=== PATIENT | male | born 1955 | race Caucasian/White ===

== ENCOUNTER → 2017-02-11 | Outpatient (CLI) | payer BC | END | disposition home or self-care (01) | LOC: LABWHC1 11:47 | PROVIDERS: ATTEND Urology | DX: C61 Malignant neoplasm of prostate (principal) | CPT/HCPCS: 36415; 84153 ==

== ENCOUNTER → 2017-05-24 | Outpatient (CLI) | payer BC | END | disposition home or self-care (01) | LOC: LABWHC1 08:06 | PROVIDERS: ATTEND Radiology Radiation Oncology | DX: C61 Malignant neoplasm of prostate (principal) | CPT/HCPCS: 36415; 84153 ==

== ENCOUNTER → 2017-09-26 | Outpatient (CLI) | payer BC | END | disposition home or self-care (01) | LOC: LABWHC1 09:24 | PROVIDERS: ATTEND Radiology Radiation Oncology | DX: C61 Malignant neoplasm of prostate (principal) | CPT/HCPCS: 36415; 84153 ==

== ENCOUNTER → 2018-01-23 | Outpatient (CLI) | payer BC | END | disposition home or self-care (01) | LOC: LABWHC1 09:18 | PROVIDERS: ATTEND Radiology Radiation Oncology | DX: C61 Malignant neoplasm of prostate (principal) | CPT/HCPCS: 36415; 84153 ==

== ENCOUNTER → 2018-03-15 | Outpatient (CLI) | payer BC ==
--- NOTE | 2018-03-15 15:17 | US ---
EXAMINATION TYPE: US kidneys/renal and bladder DATE OF EXAM: 03/15/2018 COMPARISON: NONE CLINICAL HISTORY: R31.9 Hematuria noted while on aspirin; once aspirin discontinued no visible hematu osbaldo; prostatectomy EXAM MEASUREMENTS: Right Kidney: 12.6 x 5.5 x 6.0 cm Left Kidney: 12.3 x 5.0 x 6.7 cm Post Void Residual Volume: 2.0 mL Right Kidney: No hydronephrosis or masses seen Left Kidney: No hydronephrosis or masses seen Bladder: wnl Bilateral Jets seen: yes Normal Post Void Residual: Yes There is no evidence for hydronephrosis at this point in time. No nephrolithiasis is seen. No patrick s are identified. The urinary bladder is anechoic. Bilateral ureteral jets are seen. IMPRESSION: No significant finding is seen to account for patient's symptoms.
== END | disposition home or self-care (01) ==
LOC: RADUSWWP 13:11
PROVIDERS: ATTEND Urology
DX: R31.9 Hematuria, unspecified (principal)
CPT/HCPCS: 76770

== ENCOUNTER → 2018-04-20 | Outpatient (CLI) | payer BC | END | disposition home or self-care (01) | LOC: LABWHC1 11:38 | PROVIDERS: ATTEND Radiology Radiation Oncology | DX: C61 Malignant neoplasm of prostate (principal) | CPT/HCPCS: 36415; 84153 ==

== ENCOUNTER → 2018-08-22 | Outpatient (CLI) | payer BC | LOC: LABWHC1 11:34 | PROVIDERS: ATTEND Radiology Radiation Oncology | DX: C61 Malignant neoplasm of prostate (principal); R97.21 Rising PSA following treatment for malignant neoplasm of prostate; Z90.79 Acquired absence of other genital organ(s) | CPT/HCPCS: 36415; 84153 ==

== ENCOUNTER → 2018-11-27 | Outpatient (CLI) | payer BC | LOC: LABWHC1 10:19 | PROVIDERS: ATTEND Radiology Radiation Oncology | DX: C61 Malignant neoplasm of prostate (principal); R97.21 Rising PSA following treatment for malignant neoplasm of prostate; Z90.79 Acquired absence of other genital organ(s) | CPT/HCPCS: 36415; 84153 ==

== ENCOUNTER → 2019-06-07 | Outpatient (CLI) | payer BC | END | disposition home or self-care (01) | LOC: LABWHC1 13:58 | PROVIDERS: ATTEND Radiology Radiation Oncology | DX: C61 Malignant neoplasm of prostate (principal); R97.21 Rising PSA following treatment for malignant neoplasm of prostate; Z90.79 Acquired absence of other genital organ(s) | CPT/HCPCS: 36415; 84153 ==

== ENCOUNTER → 2019-12-06 | Outpatient (CLI) | payer BC | END | disposition home or self-care (01) | LOC: LABWHC1 10:10 | PROVIDERS: ATTEND Radiology Radiation Oncology | DX: C61 Malignant neoplasm of prostate (principal); R97.21 Rising PSA following treatment for malignant neoplasm of prostate; Z90.79 Acquired absence of other genital organ(s) | CPT/HCPCS: 36415; 84153 ==

== ENCOUNTER 2020-04-17 09:44 | Day surgery (SDC) | payer BC ==
[2020-04-15 15:20] VITALS: BMI 34.5
[~2020-04-17 09:44] MED LIST: LACTATED RINGERS 1,000 ML IV SCH; LIDOCAINE 1% (10MG/ML) FOR IV START INTRADERMA PRN
[2020-04-17 09:59] VITALS: TEMP 96.9
[2020-04-17] MEDS ORDERED: PROPOFOL 10 MG/ML 20 ML VIAL IV ONE (11:39)
[2020-04-17] MEDS ORDERED: LIDOCAINE 1% INJ 10MG/ML (20 ML MDV) ONE (11:39)
--- NOTE | 2020-04-17 12:15 | P.PCN ---
Date of Procedure: 04/17/20 Description of Procedure: BRIEF HISTORY: Patient is a 64-year-old male presenting for outpatient colonoscopy for evaluation of family history of colon cancer. Last colonoscopy 5 years ago with no polyps removed. But he does report polypectomy on his initial colonoscopy. Father was diagnosed with colon cancer in his 60s. No change in bowel habits reported. PROCEDURE PERFORMED: Colonoscopy with polypectomy. PREOPERATIVE DIAGNOSIS: Family history of colon cancer, last colonoscopy 5 years ago. ESTIMATED BLOOD LOSS: Minimal. IV sedation per Anesthesia. PROCEDURE: After informed consent was obtained, the patient, was brought into the endoscopy unit. IV sedation was administered by Anesthesia under continuous monitoring. Digital rectal examination was normal. Initially the Olympus CF-190 flexible video colonoscope was then inserted in the rectum, gradually advanced into the cecum without any difficulty. Careful examination was performed as the scope was gradually being withdrawn. Ileocecal valve and the appendiceal orifice were visualized and appeared normal. Prep was excellent. Mucosa of the cecum, ascending colon, transverse colon, descending colon, sigmoid colon, and rectum appeared normal. A few scattered diverticula were noted in the sigmoid colon. 2 diminutive polyps were removed from the sigmoid colon and descending colon measuring 2-3 mm in size with cold forcep polypectomy. A large pedunculated 14 mm sigmoid colon polyp was removed with hot snare polypectomy. Retroflexion was performed in the rectum and no lesions were seen, low-grade internal hemorrhoids noted. The patient tolerated the procedure well. IMPRESSION: Large pedunculated sigmoid colon polyp removed with hot snare polypectomy. 2 diminutive polyps removed from the descending colon and sigmoid colon with cold forcep polypectomy. Mild sigmoid diverticulosis. Low-grade internal hemorrhoids. RECOMMENDATIONS: Findings of this examination were discussed with the patient. Okay to resume diet. Okay to resume medications. Await pathology from polypectomies. Would r ecommend repeat colonoscopy in 3 years for high risk colon polyps.
[2020-04-17 12:17] VITALS: RESP 16
[2020-04-17 13:14] VITALS: BP 105/67; PULSE 55
== END 2020-04-17 13:10 | disposition home or self-care (01) ==
LOC: ORWHC2ENDO 09:44
PROVIDERS: ATTEND Internal Medicine
DX: Z12.11 Encounter for screening for malignant neoplasm of colon (principal); D12.4 Benign neoplasm of descending colon; D12.5 Benign neoplasm of sigmoid colon; K63.5 Polyp of colon; K57.30 Diverticulosis of large intestine without perforation or abscess without bleeding; K64.8 Other hemorrhoids; K21.9 Gastro-esophageal reflux disease without esophagitis; G47.33 Obstructive sleep apnea (adult) (pediatric); Z85.46 Personal history of malignant neoplasm of prostate; Z80.0 Family history of malignant neoplasm of digestive organs; Z90.79 Acquired absence of other genital organ(s); Z90.49 Acquired absence of other specified parts of digestive tract; Z98.890 Other specified postprocedural states; Z79.899 Other long term (current) drug therapy
CPT/HCPCS: 45385; 45380; 88305; J2001; J2704

== ENCOUNTER → 2020-05-08 | Outpatient (CLI) | payer BC | END | disposition home or self-care (01) | LOC: LABWHC1 09:28 | PROVIDERS: ATTEND Radiology Radiation Oncology | DX: C61 Malignant neoplasm of prostate (principal); R97.21 Rising PSA following treatment for malignant neoplasm of prostate; Z90.79 Acquired absence of other genital organ(s) | CPT/HCPCS: 36415; 84153 ==

== ENCOUNTER → 2021-02-11 | Outpatient (CLI) | payer MEDICARE ==
--- NOTE | 2021-02-11 18:40 | CONS ---
CONSULTATION DATE OF CONSULTATION: 02/11/2021. 65-year-old gentleman has been evaluated in [facility] for obstructive sleep apnea- hypopnea syndrome. HISTORY OF PRESENT ILLNESS/SLEEP WAKE EVALUATION: According to patient, he was diagnosed with obstructive sleep apnea in the [facility] about 25 years ago. Since that time, patient is on treatment with CPAP every night for the whole night. SLEEP SCHEDULE: His sleep schedule from 11 or 12 midnight until 9 in the morning. FALLING ASLEEP: No problems with falling asleep. No TV in bedroom. DURING SLEEP: He sleeps in different positions. He wakes up from sleep once with nocturia. DURING THE DAY/SLEEP WAKE EVALUATION: No history of hypnagogic hallucinations, sleep paralysis or cataplexy. [place] Sleepiness Scale today is 6. He does not take any naps. For the last year, he increased his weight on about 10 pounds. I checked the CPAP unit. Usage is 30/30 nights with average usage 8 hours and 5 minutes. The machine does not have information about apnea-hypopnea index or leak. Machine is very old. I tried to get information about results of previous sleep studies, but the patient explained to me that it is not available. PAST MEDICAL HISTORY: Positive for hypertension, cardiac arrhythmia, hyperlipidemia. The patient has been told about congenital heart problems, prostate CA, acid reflux, restless leg symptoms. SOCIAL HISTORY: Positive for smoking for many years up to 2 packs a day. Quit about 20 years ago. MEDICATIONS: Catapres 0.1 mg 2 times a day. Lopressor 50 mg twice a day. Lipitor 20 mg once a day, Microzide 12.5 mg once a day, Norvasc 5 mg once a day, trazodone 50 mg once a day, Famotidine 20 mg twice a day, Zyrtec 10 mg once a day. Multivitamins, vitamin D, zinc supplements. REVIEW OF SYSTEMS: Sometimes awakenings from sleep while using CPAP equipment. FAMILY HISTORY: Heart problems. PAST SURGICAL HISTORY: Cholecystectomy, prostatectomy 2004, radiation therapy for prostate in 2016. PHYSICAL EXAMINATION: GENERAL: gentleman without distress. BP 150/63, HR 77, RR 15, height 6 feet 0 inches, weight 247.2, temperature 97.4, oxygen saturation at room air 95%. Oropharynx: Low position of soft palate. NECK: Wide 18 1/2 inches in circumference. Supple, no JVD. Thyroid is not palpable. LUNGS: Clear to percussion and to auscultation. Good air exchange. No wheezing or rhonchi. HEART: S1, S2 regular. No murmurs, gallops, or rubs. ABDOMEN: Slightly obese. Soft and nontender. Bowel sounds are present. No organomegaly appreciated. EXTREMITIES: No clubbing or cyanosis. COMPUTER PROGRAMMING SUPERVISOR: Awake, alert, and oriented X3. Cranial nerves 2 to 7 intact. There is no fasciculation or atrophy. noted. No focal deficits observed. Neck is white 18-1/2 inches in circumference. IMPRESSION: 1. Obstructive sleep apnea-hypopnea syndrome for about 25 years. The patient continues to use CPAP equipment every night. Occasional awakenings from CPAP. CPAP unit is very old. Information from previous sleep study is not available. 2. Obesity, body mass index 33.4. 3. Hypertension. 4. History of cardiac arrhythmia with high cardiac rate according to patient. 5. History of congenital heart disease according to the patient. 6. History of prostate carcinoma, status post a prostatectomy in 2004 and radiation therapy in 2016. 7. Status post cholecystectomy. 8. Acid reflux. 9. History of restless legs syndrome symptoms. Results of previous sleep studies are not available. PLAN: 1. Polysomnography for evaluation of patient's breathing during sleep. 2. CPAP/BiPAP titration if sleep study confirms obstructive sleep apnea-hypopnea syndrome. 3. Preferable position during sleep on the side. 4. No driving if patient feels any sleepiness. 5. I will see patient for follow up visit to explain results of testing and following plan. 6. The patient's CPAP unit should be replaced. Thank you very much for referring this patient for consultation. Sincerely, Demar Means MD, PhD, FAASM Diplomat of [place] [employer] [place] [employer] [facility] [place] MMODL / IJN: [id number] /
== END ==
LOC: SLEEP 13:34
PROVIDERS: ATTEND Internal Medicine
DX: G47.33 Obstructive sleep apnea (adult) (pediatric) (principal); E66.9 Obesity, unspecified; E78.5 Hyperlipidemia, unspecified; I10 Essential (primary) hypertension; K21.9 Gastro-esophageal reflux disease without esophagitis; Z86.79 Personal history of other diseases of the circulatory system; Z85.46 Personal history of malignant neoplasm of prostate; Z90.79 Acquired absence of other genital organ(s); Z90.49 Acquired absence of other specified parts of digestive tract; Z68.33 Body mass index [BMI] 33.0-33.9, adult; Z92.3 Personal history of irradiation; Z99.89 Dependence on other enabling machines and devices; Z79.899 Other long term (current) drug therapy
CPT/HCPCS: 99202

== ENCOUNTER 2021-03-14 19:04 | Emergency (ER) | payer MEDICARE ==
[2021-03-14] MEDS ORDERED: SODIUM CHLORIDE 0.9% 1,000 ML IV STA (19:22)
[2021-03-14 20:11] LABS: Basophils % (A) 0 %; Eosinophils # (A) 0.1 k/uL (0-0.7); Eosinophils % (A) 2 %; HCT 43.1 % (39.0-53.0); HGB 15.5 gm/dL (13.0-17.5); Lymphocytes # (A) 1.4 k/uL (1.0-4.8); Lymphocytes % (A) 17 %; MCH 31.7 pg (25.0-35.0); MCHC 35.9 g/dL (31.0-37.0); MCV 88.5 fL (80.0-100.0); Mean Platelet Volume 6.9; Monocytes # (A) 0.6 k/uL (0-1.0); Monocytes % (A) 8 %; Neutrophils # (A) 5.5 k/uL (1.3-7.7); Neutrophils % (A) 69 %; Platelet Count 216 k/uL (150-450); RBC 4.87 m/uL (4.30-5.90); RDW 13.1 % (11.5-15.5); WBC 7.9 k/uL (3.8-10.6)
[2021-03-14] MEDS ORDERED: LIDOCAINE URO-JET JELLY 2% 5 ML KIT URETHRAL ONE (20:14)
[2021-03-14] MEDS ORDERED: KETOROLAC 15 MG/ML 1 ML VIAL IVP STA (20:14)
--- NOTE | 2021-03-14 20:14 | ED ---
Male Urogenital HPI - General Chief complaint: Urogenital Stated complaint: blood in urine Source: patient, family Mode of arrival: wheelchair Limitations: no limitations - History of Present Illness Initial comments: 65-year-old male with history of prostate cancer presents to emergency Department with a chief complaint of hematuria. States it is common for him to have gross hematuria that is usually exacerbated whenever he is lifting heavy. States he was lifting a heavy object earlier today which she believes might have exacerbated his symptoms. Patient states he developed gross hematuria earlier today and has since only been passing blood clots. States she has not had a clear urine in the past several hours. He reports there is a blockage. This is occurred previously. He reports pressure over the bladder. He denies any nausea or vomiting or diarrhea. - Related Data Home Medications Medication Instructions Recorded Confirmed Atorvastatin [Lipitor] 20 mg PO HS 04/15/20 04/15/20 Cetirizine HCl [Zyrtec] 10 mg PO DAILY 04/15/20 04/15/20 Famotidine [Pepcid] 20 mg PO BID 04/15/20 04/15/20 Hydrochlorothiazide 12.5 mg PO DAILY 04/15/20 04/15/20 [hydroCHLOROthiazide] Metoprolol Tartrate [Lopressor] 50 mg PO BID 04/15/20 04/15/20 Multivitamins, Thera [Multivitamin 1 tab PO DAILY 04/15/20 04/15/20 (formulary)] amLODIPine [Norvasc] 5 mg PO DAILY 04/15/20 04/15/20 cloNIDine HCL [Catapres] 0.1 mg PO BID 04/15/20 04/15/20 traZODone HCL 50 mg PO HS 04/15/20 04/15/20 Previous Rx's Medication Instructions Recorded Ciprofloxacin HCl [Cipro] 500 mg PO Q12HR #20 tablet 03/14/21 Allergies Allergy/AdvReac Type Severity Reaction Status Date / Time No Known Allergies Allergy Verified 03/14/21 19:15 Review of Systems ROS Statement: Those systems with pertinent positive or pertinent negative responses have been documented in the HPI. ROS Other: All systems not noted in ROS Statement are negative. Past Medical History Past Medical History: Cancer, GERD/Reflux, Hyperlipidemia, Hypertension Additional Past Medical History / Comment(s): NEUROPATHY BLE. TINNITIS. HX PROSTATE CANCER-SX AND CHEMO History of Any Multi-Drug Resistant Organisms: None Reported Past Surgical History: Cholecystectomy, Prostate Surgery Additional Past Surgical History / Comment(s): PROSTATECTOMY. COLONOSCOPY/EGD Past Anesthesia/Blood Transfusion Reactions: Motion Sickness Past Psychological History: No Psychological Hx Reported Smoking Status: Former smoker Past Alcohol Use History: Occasional Past Drug Use History: None Reported - Past Family History Father Family Medical History: Cancer General Exam Limitations: no limitations General appearance: alert, in no apparent distress Head exam: Present: atraumatic, normocephalic, normal inspection Eye exam: Present: normal appearance, PERRL, EOMI Pupils: Present: normal accommodation ENT exam: Present: normal exam, normal oropharynx, mucous membranes moist. Absent: TM's normal bilaterally, normal external ear exam Neck exam: Present: normal inspection, full ROM. Absent: tenderness, lymphadenopathy Respiratory exam: Present: normal lung sounds bilaterally. Absent: respiratory distress, wheezes, rales, rhonchi, stridor, chest wall tenderness, accessory muscle use Cardiovascular Exam: Present: regular rate, normal rhythm, normal heart sounds. Absent: systolic murmur GI/Abdominal exam: Present: soft, tenderness (Tenderness over the bladder). Absent: distended, guarding, rebound, rigid Extremities exam: Present: normal inspection, full ROM, normal capillary refill. Absent: tenderness, pedal edema, joint swelling Back exam: Present: normal inspection, full ROM. Absent: tenderness, CVA tenderness (R), CVA tenderness (L), muscle spasm, paraspinal tenderness, vertebral tenderness Course Vital Signs 03/14/21 19:15 Temperature 97.8 F Pulse Rate 78 Respiratory 16 Rate Blood Pressure 134/74 O2 Sat by Pulse 97 Oximetry Medical Decision Making - Medical Decision Making 65-year-old male with history of prostate cancer presents to emergency Department with a chief complaint of hematuria. On physical examination, tenderness over the bladder. Floyd catheter was inserted and he drained about 6 700 mL of mostly gross hematuria. He was able to have some clear urine as well. UA showed excessive amounts of red blood cells along with white blood cells. Urine culture pending. He will be started on ciprofloxacin. CBC and BMP unremarkable. Patient will follow up with his urologist. Return parameters were thoroughly discussed with patient was mihaela escobar. Case discussed with dr. ROSE - Lab Data Result diagrams: 03/14/21 19:50 03/14/21 19:50 Lab Results 03/14/21 03/14/21 03/14/21 Range/Units 19:50 19:50 19:50 WBC 7.9 (3.8-10.6) k/uL RBC 4.87 (4.30-5.90) m/uL Hgb 15.5 (13.0-17.5) gm/dL Hct 43.1 (39.0-53.0) % MCV 88.5 (80.0-100.0) fL MCH 31.7 (25.0-35.0) pg MCHC 35.9 (31.0-37.0) g/dL RDW 13.1 (11.5-15.5) % Plt Count 216 (150-450) k/uL MPV 6.9 Neutrophils % 69 % Lymphocytes % 17 % Monocytes % 8 % Eosinophils % 2 % Basophils % 0 % Neutrophils # 5.5 (1.3-7.7) k/uL Lymphocytes # 1.4 (1.0-4.8) k/uL Monocytes # 0.6 (0-1.0) k/uL Eosinophils # 0.1 (0-0.7) k/uL Basophils # 0.0 (0-0.2) k/uL Sodium 139 (137-145) mmol/L Potassium 3.7 (3.5-5.1) mmol/L Chloride 103 (98-107) mmol/L Carbon Dioxide 22 (22-30) mmol/L Anion Gap 14 mmol/L BUN 13 (9-20) mg/dL Creatinine 0.68 (0.66-1.25) mg/dL Est GFR (CKD-EPI)AfAm >90 (>60 ml/min/1.73 sqM) Est GFR (CKD-EPI)NonAf >90 (>60 ml/min/1.73 sqM) Glucose 115 H (74-99) mg/dL Calcium 9.6 (8.4-10.2) mg/dL Urine Color Red Urine Appearance Bloody (Clear) Urine pH Not Reportable Ur Specific [place] Not Reportable Urine Protein Not Reportable Ur Protein Confirm Not Reportable Urine Glucose (UA) Not Reportable Urine Ketones Not Reportable Urine Blood Not Reportable Urine Nitrite Not Reportable Urine Bilirubin Not Reportable Ur Bilirubin Confirm Not Reportable Urine Urobilinogen Not Reportable Ur Leukocyte Esterase Not Reportable Urine RBC >182 H (0-5) /hpf Urine WBC >182 H (0-5) /hpf Disposition Clinical Impression: Hematuria, UTI (urinary tract infection) Disposition: HOME SELF-CARE Condition: Stable Instructions (If sedation given, give patient instructions): Urinary Tract Infection in Men (ED) Additional Instructions: follow-up with urology. Take prescribed medication as directed. Return to emergency department if symptoms worsen. Prescriptions: Ciprofloxacin HCl [Cipro] 500 mg PO Q12HR #20 tablet Is patient prescribed a controlled substance at d/c from ED?: No Referrals: Amita Calero MD [Primary Care Provider] - 1-2 days Rohit Beckwith MD [STAFF PHYSICIAN] - 1-2 days Time of Disposition: 21:29
[2021-03-14 20:41] LABS: African American GFR (CKD) >90 (>60 ml/min/1.73 sqM); Anion Gap 14 mmol/L; Blood Urea Nitrogen 13 mg/dL (9-20); Calcium 9.6 mg/dL (8.4-10.2); Carbon Dioxide 22 mmol/L (22-30); Chloride 103 mmol/L (98-107); Glucose 115 mg/dL (74-99); Non-African American GFR(CKD) >90 (>60 ml/min/1.73 sqM); Potassium 3.7 mmol/L (3.5-5.1); RBC,Urine >182 /hpf (0-5); Sodium 139 mmol/L (137-145)
[2021-03-14 20:45] LABS: WBC,Urine >182 /hpf (0-5)
[2021-03-14 20:56] LABS: Appearance,Urine Bloody (Clear); Color,Urine Red
[2021-03-14 22:47] VITALS: BP 146/73; PULSE 90; RESP 18; TEMP 98.1
== END 2021-03-14 22:47 | disposition home or self-care (01) ==
LOC: EC 19:04
DX: R31.9 Hematuria, unspecified (principal); N39.0 Urinary tract infection, site not specified; E78.5 Hyperlipidemia, unspecified; I10 Essential (primary) hypertension; K21.9 Gastro-esophageal reflux disease without esophagitis; Z85.46 Personal history of malignant neoplasm of prostate; Z87.891 Personal history of nicotine dependence; Z90.79 Acquired absence of other genital organ(s)
CPT/HCPCS: 36415; 80048; 85025; 81001; 87086; 99283; 96374; J1885

== ENCOUNTER 2021-03-15 10:06 | Emergency (ER) | payer MEDICARE ==
[2021-03-15 10:12] VITALS: RESP 18; TEMP 98.3
--- NOTE | 2021-03-15 10:32 | ED ---
General Adult HPI - General Chief complaint: Urogenital Stated complaint: Revisit/Floyd Cath Issues Time Seen by Provider: 03/15/21 10:14 Source: patient, family, RN notes reviewed Mode of arrival: ambulatory Limitations: no limitations - History of Present Illness Initial comments: Patient is a pleasant 65-year-old male returning to the emergency department with concern for Floyd catheter not draining. He should states he did have some bleeding and retention and had Floyd catheter placed yesterday. Patient states it did drain well at that time. Patient states he has had minimal output since he left last night. Patient states that has been some blood coming from the site of the catheter. Patient does not have suprapubic fullness as he did last night. No abdominal or back pain. No fevers. Patient did have similar symptoms years ago and did follow-up with urologist at that time. Patient is not currently on any blood thinners. - Related Data Home Medications Medication Instructions Recorded Confirmed Atorvastatin [Lipitor] 20 mg PO HS 04/15/20 04/15/20 Cetirizine HCl [Zyrtec] 10 mg PO DAILY 04/15/20 04/15/20 Famotidine [Pepcid] 20 mg PO BID 04/15/20 04/15/20 Hydrochlorothiazide 12.5 mg PO DAILY 04/15/20 04/15/20 [hydroCHLOROthiazide] Metoprolol Tartrate [Lopressor] 50 mg PO BID 04/15/20 04/15/20 Multivitamins, Thera [Multivitamin 1 tab PO DAILY 04/15/20 04/15/20 (formulary)] amLODIPine [Norvasc] 5 mg PO DAILY 04/15/20 04/15/20 cloNIDine HCL [Catapres] 0.1 mg PO BID 04/15/20 04/15/20 traZODone HCL 50 mg PO HS 04/15/20 04/15/20 Previous Rx's Medication Instructions Recorded Ciprofloxacin HCl [Cipro] 500 mg PO Q12HR #20 tablet 03/14/21 Allergies Allergy/AdvReac Type Severity Reaction Status Date / Time No Known Allergies Allergy Verified 03/15/21 10:11 Review of Systems ROS Statement: Those systems with pertinent positive or pertinent negative responses have been documented in the HPI. ROS Other: All systems not noted in ROS Statement are negative. Constitutional: Denies: fever Eyes: Denies: eye pain ENT: Denies: ear pain Respiratory: Denies: cough Cardiovascular: Denies: chest pain Endocrine: Denies: fatigue Gastrointestinal: Denies: abdominal pain Genitourinary: Reports: urgency, hematuria Musculoskeletal: Denies: back pain Skin: Denies: rash Neurological: Denies: weakness Past Medical History Past Medical History: Cancer, GERD/Reflux, Hyperlipidemia, Hypertension Additional Past Medical History / Comment(s): NEUROPATHY BLE. TINNITIS. HX PROSTATE CANCER-SX AND CHEMO History of Any Multi-Drug Resistant Organisms: None Reported Past Surgical History: Cholecystectomy, Prostate Surgery Additional Past Surgical History / Comment(s): PROSTATECTOMY. COLONOSCOPY/EGD Past Anesthesia/Blood Transfusion Reactions: Motion Sickness Past Psychological History: No Psychological Hx Reported Smoking Status: Former smoker Past Alcohol Use History: Occasional Past Drug Use History: None Reported - Past Family History Father Family Medical History: Cancer General Exam Limitations: no limitations General appearance: alert, in no apparent distress Head exam: Present: normocephalic Eye exam: Present: normal appearance Neck exam: Present: normal inspection Respiratory exam: Present: normal lung sounds bilaterally Cardiovascular Exam: Present: regular rate, normal rhythm GI/Abdominal exam: Present: soft. Absent: tenderness exam: Present: normal inspection, other (Catheter in place) Back exam: Present: normal inspection Neurological exam: Present: alert Psychiatric exam: Present: normal affect, normal mood Skin exam: Present: normal color Course Vital Signs 03/15/21 10:09 Temperature 98.3 F Pulse Rate 64 Respiratory 18 Rate Blood Pressure 146/74 O2 Sat by Pulse 98 Oximetry Medical Decision Making - Medical Decision Making Catheter flushing by nursing staff and reported as functioning well. Disposition Clinical Impression: Urinary retention Disposition: HOME SELF-CARE Condition: Stable Instructions (If sedation given, give patient instructions): Urinary Retention in Men (ED) Additional Instructions: Please follow-up with urology this week, number provided. Return for not passing urine, pain, fevers, bleeding, worsening symptoms or other concerns. Is patient prescribed a controlled substance at d/c from ED?: No Referrals: Amita Calero MD [Primary Care Provider] - 1-2 days Jefe Sharma MD [STAFF PHYSICIAN] - 1-2 days Time of Disposition: 11:23
[2021-03-15 11:45] VITALS: BP 128/84; PULSE 88
== END 2021-03-15 11:45 | disposition home or self-care (01) ==
LOC: EC 10:06
DX: R33.9 Retention of urine, unspecified (principal); I10 Essential (primary) hypertension; E78.5 Hyperlipidemia, unspecified; K21.9 Gastro-esophageal reflux disease without esophagitis; Z79.899 Other long term (current) drug therapy; Z85.46 Personal history of malignant neoplasm of prostate; Z87.891 Personal history of nicotine dependence; Z90.79 Acquired absence of other genital organ(s); G62.9 Polyneuropathy, unspecified; Z96.0 Presence of urogenital implants
CPT/HCPCS: 99283

== ENCOUNTER → 2023-03-01 | Outpatient (CLI) | payer MEDICARE ==
--- NOTE | 2023-03-01 14:11 | P.SLEEP ---
History of Present Illness H&P Date: 03/01/23 This is a 67-year-old male patient with known history of obstructive sleep apnea. The diagnosis was originally made through [facility]. The patient is still using the original REMstar CPAP unit that he was given back then and this was given to more than 10 years ago. The patient is also using a hudson lt nasal pillow. He is coming in to update his machine. The patient's has been a long-time CPAP use and is very compliant over the years. While on treatment, he feels fine without any snoring or hypersomnia. While off treatment, he developed the typical symptoms of sleep apnea including excessive fatigue and sleepiness, snoring, apneas, choking and gasping for air. He goes to bed around midnight and wakes up at 8 AM in the morning. No recent weight gain. No nighttime chest pain or shortness of breath. No heartburn. No dreams. No nightmares. No sleep paralysis. No hallucinations. No cataplexy. Comorbid conditions include hypertension, hyperlipidemia and history of prostate cancer. Review of Systems Constitutional: Reports daytime sleepiness, Reports fatigue Eyes: denies as per HPI, denies blurred vision, denies bulging eye, denies decreased vision, denies diplopia, denies discharge, denies dry eye, denies irritation, denies itching, denies pain, denies photophobia, denies loss of peripheral vision, denies loss of vision, denies tunnel vision/blind spots Ears: deny: decreased hearing, ear discharge, earache, tinnitus Ears, nose, mouth and throat: Reports as per HPI Breasts: absent: as per HPI, gynecomastia Respiratory: Reports sleep apnea, Reports snoring Gastrointestinal: Reports as per HPI Genitourinary: Reports urinary hesitancy, Reports urinary retention Musculoskeletal: Reports as per HPI Musculoskeletal: absent: ankle pain, ankle stiffness, ankle swelling Integumentary: Reports as per HPI Neurological: Reports as per HPI Psychiatric: Reports as per HPI Endocrine: Reports as per HPI Hematologic/Lymphatic: Reports as per HPI Past Medical History Past Medical History: Cancer, GERD/Reflux, Hyperlipidemia, Hypertension, Sleep Apnea/CPAP/BIPAP Additional Past Medical History / Comment(s): NEUROPATHY BLE. TINNITIS. HX PROSTATE CANCER-SX AND CHEMO History of Any Multi-Drug Resistant Organisms: None Reported Past Surgical History: Cholecystectomy, Prostate Surgery Additional Past Surgical History / Comment(s): PROSTATECTOMY. COLONOSCOPY/EGD Past Anesthesia/Blood Transfusion Reactions: Motion Sickness Past Psychological History: No Psychological Hx Reported Smoking Status: Former smoker Past Alcohol Use History: Occasional Past Drug Use History: None Reported - Past Family History Father Family Medical History: Cancer Medications and Allergies Home Medications Medication Instructions Recorded Confirmed Type Atorvastatin [Lipitor] 20 mg PO HS 04/15/20 04/15/20 History Cetirizine HCl [Zyrtec] 10 mg PO DAILY 04/15/20 04/15/20 History Famotidine [Pepcid] 20 mg PO BID 04/15/20 04/15/20 History Metoprolol Tartrate [Lopressor] 50 mg PO BID 04/15/20 04/15/20 History Multivitamins, Thera [Multivitamin 1 tab PO DAILY 04/15/20 04/15/20 History (formulary)] amLODIPine [Norvasc] 5 mg PO DAILY 04/15/20 04/15/20 History cloNIDine HCL [Catapres] 0.1 mg PO BID 04/15/20 04/15/20 History hydroCHLOROthiazide 12.5 mg PO DAILY 04/15/20 04/15/20 History traZODone HCL 50 mg PO HS 04/15/20 04/15/20 History Ciprofloxacin HCl [Cipro] 500 mg PO Q12HR #20 tablet 03/14/21 Rx Allergies Allergy/AdvReac Type Severity Reaction Status Date / Time No Known Allergies Allergy Verified 03/15/21 10:11 Physical Exam BP is 155/82, pulse is 56, respirations 16, temperature is 97.7 and the size of the neck is 19 inches. Body mass index is 34.1 The patient has an [place] score of 10 The patient appeared well nourished and normally developed. Vital signs as d ocumented. Head exam is unremarkable. No scleral icterus or corneal arcus noted. Neck is without jugular venous distension, thyromegaly, or carotid bruits. Carotid upstrokes are brisk bilaterally. Lungs are clear to auscultation and percussion. Cardiac exam reveals the PMI to be normally sized and situated. Rhythm is regular. First and second heart sounds normal. No murmurs, rubs or gallops. Abdominal exam reveals normal bowel sounds, no masses, no organomegaly and no aortic enlargement. Extremities are nonedematous and both femoral and pedal pulses are normal.Examination of the skin revealed no evidence of significant rashes, suspicious appearing nevi or other concerning lesions.Neurologically, the patient is awake and alert and the patient does not have any focal neurological deficit. Cranial nerves are essentially intact. Assessment and Plan Plan: obstructive sleep apnea diagnosed more than 10 years ago and the patient has been managed and treated with CPAP therapy at a pressure of 10 cm of water. The patient has been utilizing hudson lt nasal pillows. Chronic hypersomnia, improved with CPAP therapy Prostate cancer Hypertension Hyperlipidemia Plan This patient is a long-time CPAP user. The patient has been treated successfully over the years. The patient is in need for new CPAP unit. His current unit is quite old and the functionality of the machines in question. Based on all this, I'm going to order a home sleep study to reestablish diagnosis of sleep apnea. Following that, the patient be offered a CPAP unit, and new generation ResMed 11, and this will be sent to the same pressure of 10 cm of water. I'm also going to offer in the air fit P 30 I nasal pillows. This will be an alternative nasal pillow for this patient. sleep hygiene measures of good Continue regular sleep schedule Continue management of comorbidities Encourage weight loss Came back for a compliancy check after obtaining her new CPAP unit and further recommendations are to follow Sleep Note - Sleep Note Sleep Note: Temperature: Pulse Rate: Respiratory Rate: Blood Pressure: SpO2: Height: Weight: BMI: Neck Circumference:
== END ==
LOC: 3 N SLEEP 13:32
PROVIDERS: ATTEND Internal Medicine Critical Care Medicine
DX: G47.33 Obstructive sleep apnea (adult) (pediatric) (principal); Z99.89 Dependence on other enabling machines and devices; I10 Essential (primary) hypertension; E78.5 Hyperlipidemia, unspecified; C61 Malignant neoplasm of prostate; Z79.899 Other long term (current) drug therapy; F12.90 Cannabis use, unspecified, uncomplicated; K21.9 Gastro-esophageal reflux disease without esophagitis; Z87.891 Personal history of nicotine dependence
CPT/HCPCS: 99211

== ENCOUNTER 2023-03-10 16:47 | Outpatient (CLI) | payer MEDICARE ==
--- NOTE | 2023-03-23 23:53 | P.PCN ---
Date of Procedure: 03/10/23 Operative Findings: Home sleep study Date of service is 03/10/2023 Pertinent history This is a 67-year-old male patient with known history of obstructive sleep apnea. The diagnosis was originally made through [facility]. The patient is still using the original REMstar CPAP unit that he was given back then and this was given to more than 10 years ago. The patient is also using a hudson lt nasal pillow. He is coming in to update his machine. The patient's has been a long-time CPAP use and is very compliant over the years. While on treatment, he feels fine without any snoring or hypersomnia. While off treatment, he developed the typical symptoms of sleep apnea including excessive fatigue and sleepiness, snoring, apneas, choking and gasping for air. He goes to bed around midnight and wakes up at 8 AM in the morning. No recent weight gain. No nighttime chest pain or shortness of breath. No heartburn. No dreams. No nightmares. No sleep paralysis. No hallucinations. No cataplexy. Comorbid conditions include hypertension, hyperlipidemia and history of prostate cancer. Physical findings The patient has a weight of 250 pounds with a BMI of 46.4 Technical description The ResMed apnea link was used to complete his home sleep study. This is a type III home sleep study testing. The total recording duration was 8 hours and 41 minutes. The study started at 10:34 PM and the study ended at 7:15 AM. This was an adequate study as the patient had a more than 8 hours of flow and oxygen saturation evaluation Respiratory analysis The patient had a total of 482 obstructive apneas, 4 central apneas, 0 mixed apneas and 124 obstructive hypopneas. This resulted into an AHI of 72 consistent with severe VEDA Oxygenation analysis The patient had evidence of severe nocturnal oxygen desaturation with a minimum pulse ox of 77% and the patient spent approximately 33 minutes of the sleep time below pulse ox of 89% and this accounted for 6% of the overall sleep time. 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 Plan The patient will update his CPAP unit. The patient will be given a newer generation ResMed 11 at a pressure of 10 cm of water with C-Flex of 3 and the patient will use a nasal pillow, likely the airfit P30 I nasal pillows The patient will see him back in the office in 30-90 days to assess clinical response and compliancy
== END 2023-03-11 23:59 | disposition home or self-care (01) ==
LOC: 3 N SLEEP 16:47 → EDSTATUS 17:00 → 3 N SLEEP 03-11 10:10
PROVIDERS: ATTEND Internal Medicine Critical Care Medicine
DX: G47.33 Obstructive sleep apnea (adult) (pediatric) (principal); E78.5 Hyperlipidemia, unspecified; K21.9 Gastro-esophageal reflux disease without esophagitis; I10 Essential (primary) hypertension; Z99.89 Dependence on other enabling machines and devices; Z79.899 Other long term (current) drug therapy; Z85.46 Personal history of malignant neoplasm of prostate

== ENCOUNTER 2023-08-19 07:14 | Day surgery (SDC) | payer MEDICARE ==
[2023-08-19 08:03] VITALS: TEMP 97.2
[2023-08-19] MEDS ORDERED: LIDOCAINE 1% INJ 10MG/ML (20 ML MDV) ONE (08:12)
[2023-08-19] MEDS ORDERED: PROPOFOL 10 MG/ML 20 ML VIAL IV ONE (08:12)
--- NOTE | 2023-08-19 08:43 | P.PCN ---
Date of Procedure: 08/19/23 Procedure(s) Performed: Brief history: Patient is a pleasant 68-year-old white malescheduled for an elective upper endoscopy as well as colonoscopy as a part of evaluation ofGERD/Issa's esophagus and prior history of colon polyps Procedure performed: Esophagogastroduodenoscopy with biopsy Colonoscopy with biopsy Preoperative diagnosis: GERD/long-standing history of Issa's esophagus History of colon polyps Anesthesia: MAC Procedure: After informed consent was obtained from the patient was brought into the endoscopy unit and IV sedation was administered by anesthesia under continuous monitoring. Initially upper endoscopy was done. The Olympus GF 160 video endoscope was inserted inserted into the mouth and esophagus intubated without any difficulty and was gradually advanced into the stomach and duodenum and carefully examined. The bulb of the duodenum appeared normal. and the second part of the duodenum there was polyp measuring1.5 cm in size with central indentation suspicious for ectopic pancreas and biopsies were done from this area.The scope was then withdrawn into the stomach adequately insufflated with air and upon careful examination the antrum and body, cardia and fundus appeared normal. small hiatal hernia noted. The scope was then withdrawn into the esophagus. The GE junction was located at 40 cm to the incisors. there was a long segment of Issa's esophagus and from 34-40 cm from the incisors and multiple biopsies were done from this area. Rest of the esophagus appeared normal. Patient tolerated the procedure well. At this time the patient continued to remain sedation. Initial digital rectal examination was normal. Olympus CF 160 video colonoscope was then inserted into the rectum and gradually advanced to the cecum without any difficulty. Careful examination was performed as the scope was gradually being withdrawn. The prep was excellent. The cecum, ascending colon, transverse colon,appeared normal. In the descending colon there was a 4 mm polyp that was removed by cold biopsy. In the sigmoid: There was a 3 mm polyp that was removed by cold biopsy. descending colon, sigmoid colon and rectum appeared normal. Retroflexion was performed in the rectum and no lesions were noted. Patient tolerated the procedure well. Impression: 1. Upper endoscopy revealed long segment Issa's esophagus extended from 34-40 cm from the incisors status post multiple biopsies,, 1.5 cm polyp in the second part of the duodenum status post multiple biopsies. 2. Colonoscopy venous 3 mm and 4 mm polyps in the sigmoid colon and descending colon respectively, status post cold biopsy Recommendations: Findings of this examination were discussed with the patient as well ashis family. He was advised to follow with the biopsy results. If the biopsy reveals Issa's esophagus and have a repeat upper endoscopy in 3 years. Recommend repeat colonoscopy in 5 years.
[2023-08-19 09:26] VITALS: BP 141/81; PULSE 61; RESP 18
== END 2023-08-19 09:44 | disposition home or self-care (01) ==
LOC: ORWHC2ENDO 07:14
PROVIDERS: ATTEND Internal Medicine Gastroenterology
DX: Z12.11 Encounter for screening for malignant neoplasm of colon (principal); K29.80 Duodenitis without bleeding; D12.4 Benign neoplasm of descending colon; K22.70 Barrett's esophagus without dysplasia; K21.9 Gastro-esophageal reflux disease without esophagitis; K44.9 Diaphragmatic hernia without obstruction or gangrene; I10 Essential (primary) hypertension; E78.5 Hyperlipidemia, unspecified; G47.33 Obstructive sleep apnea (adult) (pediatric); F12.90 Cannabis use, unspecified, uncomplicated; Z79.899 Other long term (current) drug therapy; Z85.46 Personal history of malignant neoplasm of prostate; Z86.010 Personal history of colon polyps
CPT/HCPCS: 88305; 45380; 43239; J2001; J2704

== ENCOUNTER → 2023-09-20 | Outpatient (CLI) | payer MEDICARE ==
--- NOTE | 2023-09-20 15:36 | P.PN ---
Progress Note - Text Progress Note Date: 09/20/23 The patient is a 68-year-old male with known history of obstructive sleep apnea. The patient is coming to see me for a follow-up regarding his new CPAP machine and is undergoing a compliancy check. The patient was diagnosed having severe VEDA with an AHI of 72 and currently the patient on a CPAP pressure of 10 cm of water. He is using the airfit p10 nasal pillows. He is very happy with his new machine. He is compliant and utilizing the machine every night without any major difficulties. Based on the compliance data that has been collected between 08/21/2020 and 09/19/2023, the patient has 100% compliancy, and the patient has been averaging about 7 hours and 42 minutes of CPAP use per night. CPAP compliancy for more than 4 hours is in order of 100%. The patient has an AHI of 3.3 while on treatment. Leak some minimal in the order of 19 L/m. No hypersomnia or sleepiness during the day. His current humidity level is at 1. [place] score is at 4. No significant weight gain and the patient is still weighing approximately 250 pounds. No issues with stool, congestion heart fa ilure or atrial fibrillation at this point in time. He is known to have chronic hypertension hyperlipidemia. He has also history of prostate cancer Review of system was done and based on a 14 point review of system, there is essentially negative BP is 121/87, pulse is 77, respirations 18, [place] score is at 4, temperature is 98.0 and weight is 247. The patient appeared well nourished and normally developed. Vital signs as documented. Head exam is unremarkable. No scleral icterus or corneal arcus noted. Neck is without jugular venous distension, thyromegaly, or carotid bruits. Carotid upstrokes are brisk bilaterally. Lungs are clear to auscultation and percussion. Cardiac exam reveals the PMI to be normally sized and situated. Rhythm is regular. First and second heart sounds normal. No murmurs, rubs or gallops. Abdominal exam reveals normal bowel sounds, no masses, no organomegaly and no aortic enlargement. Extremities are nonedematous and both femoral and pedal pulses are normal.Examination of the skin revealed no evidence of significant rashes, suspicious appearing nevi or other concerning lesions.Neurologically, the patient is awake and alert and the patient does not have any focal neurological deficit. Cranial nerves are essentially intact. Assessment Severe obstructive sleep apnea with an AHI of 72. The patient is currently on CPAP pressure of 10 cm of water. Treatment has been successful Chronic hypersomnia, improved and the patient currently has an [place] score of 4. Prostate cancer, history of. Hypertension Hyperlipidemia Acid reflux Plan Patient is compliant and the patient meets insurance standards for Compliancy. Continue using the CPAP therapy at a pressure of 10 cm of water and we'll keep the same mask interface. The patient will be At the humidity level of 1. Refills will be given supplies. Patient has no other complaints. Encourage weight loss. Maintaining good sleep hygiene measures. We'll continue to follow. See back in a year's time in follow-up.
== END ==
LOC: 3 N SLEEP 15:14
PROVIDERS: ATTEND Internal Medicine Critical Care Medicine
DX: G47.33 Obstructive sleep apnea (adult) (pediatric) (principal); G47.10 Hypersomnia, unspecified; E78.5 Hyperlipidemia, unspecified; I10 Essential (primary) hypertension; K21.9 Gastro-esophageal reflux disease without esophagitis; Z85.46 Personal history of malignant neoplasm of prostate; Z99.89 Dependence on other enabling machines and devices; Z79.899 Other long term (current) drug therapy
CPT/HCPCS: 99212